=== PATIENT | male | born 1995 | race Caucasian/White ===

== ENCOUNTER 2019-10-14 10:55 | Emergency (ER) | payer OTHER ==
[~2019-10-14] VITALS: Ht 182.9 cm; Wt 90.6 kg
[2019-10-14] MEDS ORDERED: FLON1SPR NARES (11:50)
[2019-10-14] MEDS ORDERED: PENI500T PO (11:50)
[2019-10-14 11:59] VITALS: BP 122/65
== END 2019-10-14 12:00 | disposition home or self-care (01) ==
LOC: M ED 10:55
DX: J02.0 Streptococcal pharyngitis (principal)